=== PATIENT | female | born 1990 | race Hispanic/Latino ===

== ENCOUNTER 2018-05-06 03:11 | Inpatient (IN) | payer MEDICAID ==
--- NOTE | 2018-05-06 03:29 | History and Physical Report ---
History of Present Illness Date of examination: 05/06/18 Date of admission: 05/06/18 03:11 Chief complaint: Labor History of present illness: Pt is a 27yo WF EDC 09/14/18; EGA 21 2/ weeks presents to L&D complaining of vaginal bleeding and contractions. She did not have care with this . Past History Past Medical History: no pertinent history Past Surgical History: section Social history: no significant social history, single - Obstetrical History Expected Date of Delivery: 09/14/18 Actual Gestation: 21 Week(s) 2 Day(s) Medications and Allergies Allergies Allergy/AdvReac Type Severity Reaction Status Date / Time No Known Allergies Allergy Verified 01/16/18 18:16 Home Medications Medication Instructions Recorded Confirmed Last Taken Type Acetaminophen/Codeine [Tylenol #3] 1 tab PO Q6H PRN #15 tab 04/04/13 Unknown Rx Lidocaine Viscous 2% [Xylocaine 10 ml MM Q3H PRN #240 ml 04/04/13 Unknown Rx Viscous 2%] Penicillin Vk [Veetids TAB] 500 mg PO QID #40 tab 04/04/13 Unknown Rx Ciprofloxacin HCl [Ciprofloxacin 500 mg PO Q12H #14 tab 03/30/14 Unknown Rx TAB] Fluconazole 150 mg PO ONCE #2 tablet 03/30/14 Unknown Rx Ibuprofen [Motrin 600 MG tab] 600 mg PO Q8H PRN #30 tablet 03/30/14 Unknown Rx Promethazine [Phenergan] 25 mg PO Q6H PRN #20 tablet 03/30/14 Unknown Rx traMADol [Ultram] 50 mg PO Q6HR PRN #20 tablet 03/30/14 Unknown Rx Review of Systems All systems: negative - Physical Exam Breasts: Positive: deferred Cardiovascular: Regular rate Lungs: Positive: Clear to auscultation Abdomen: Positive: normal appearance Genitourinary (Female): Positive: normal external genitalia Vagina: Positive: other (blood) Uterus: Positive: enlarged - Obstetrical Uterine Contraction Monitor Mode: External Cervical Dilatation: 10 Cervical Effacement Percentage: 100 station: +2 Uterine Contraction Pattern: Regular Uterine Tone Measurement Phase: Contraction Results Result Diagrams: 05/06/18 05:56 All other labs normal. Assessment and Plan - Patient Problems (1) 21 weeks gestation of Onset Date: 05/06/18 Current Visit: Yes Status: Acute Plan to address problem: A: IUP @ 21 2/7 weeks in labor labor premature rupture of membranes No care Previous C Section P: Admit to L&D for imminent vaginal delivery NICU aware (2) contractions Onset Date: 05/06/18 Current Visit: Yes Status: Acute (3) premature rupture of membranes (PPROM) with onset of labor within 24 hours of rupture in second trimester, antepartum Onset Date: 05/06/18 Current Visit: Yes Status: Acute
--- NOTE | 2018-05-06 03:32 | Procedure Note ---
OB Delivery Note - Delivery Date of Delivery: 05/06/18 Surgeon: MARTY TAI Estimated blood loss: 200cc - Vaginal Delivery presentation: vertex Delivery position: OA Intrapartum events: no care, precipitous labor- <3hr Delivery induction: none Delivery augmentation: rupture of membranes Delivery monitor: external FHT, external uterine Route of delivery: Delivery placenta: spontaneous Delivery cord: 3 umbilical vessels Episiotomy: none Anesthesia: none Delivery comments: Infant delivered OA and handed to awaiting Peds/RT in attendance - A at 1 minute: 1 at 5 minutes: 1 Gender: Female (382gms)
[2018-05-06] MEDS ORDERED: BRETHINE IVP PRN (03:33)
[2018-05-06] MEDS ORDERED: BRETHINE SUB-Q PRN (03:33)
[2018-05-06] MEDS ORDERED: MINERAL OIL PO PRN (03:33)
[2018-05-06] MEDS ORDERED: XYLOCAINE 2% INFILTRATI ONE (03:33)
[2018-05-06] MEDS ORDERED: ZOFRAN IV PRN ×2 (03:33→03:37)
[2018-05-06] MEDS ORDERED: TUCKS PAD TP PRN (03:37)
[2018-05-06] MEDS ORDERED: BENADRYL PO PRN (03:37)
[2018-05-06] MEDS ORDERED: PHENERGAN PR PRN (03:37)
[2018-05-06] MEDS ORDERED: PHENERGAN PO PRN (03:37)
[2018-05-06] MEDS ORDERED: DULCOLAX PR PRN (03:37)
[2018-05-06] MEDS ORDERED: TYLENOL PO PRN (03:37)
[2018-05-06] MEDS ORDERED: LANSINOH TP PRN (03:37)
[2018-05-06] MEDS ORDERED: MILK OF MAGNESIA PO PRN (03:37)
[2018-05-06] MEDS ORDERED: SODIUM CHLORIDE FLUSH SYRINGE 10 ML IV PRN (04:00)
[2018-05-06] MEDS ORDERED: PITOCin/NS 30 UNIT/500ML 30 UNITS/500 ML BAG IV SCH (04:00)
[2018-05-06] MEDS ORDERED: LACTATED RINGERS 1,000 ML IV SCH (04:00)
[2018-05-06] MEDS ORDERED: PITOCin/NS 20 UNIT/1000ML DRIP 20 UNITS/1,000 ML BAG IV SCH ×2 (04:00)
[2018-05-06 04:02] LABS: Amphetamine Screen,Urine PRESUMPTIVE NEGATIVE; Benzodiazepines Screen,Urine PRESUMPTIVE NEGATIVE; Cocaine Screen,Urine PRESUMPTIVE NEGATIVE; Methadone Screen,Urine PRESUMPTIVE NEGATIVE; Opiate Screen,Urine PRESUMPTIVE NEGATIVE
[2018-05-06] MEDS: IBUPROFEN PO SCH ×2 (04:06→12:32)
[2018-05-06] MEDS: NORCO 5/325 PO PRN ×4 (04:07→21:20)
[2018-05-06 04:13] LABS: Cannabinoid Screen,Urine PRESUMPTIVE POSITIVE
[2018-05-06 06:12] LABS: Hemoglobin 11.4 gm/dl (10.1-14.3); Mean Corpuscular HGB Conc 34 % (30-34); Mean Corpuscular Volume 89 fl (79-97); Platelet Count 245 K/mm3 (140-440); Red Blood Count 3.73 M/mm3 (3.65-5.03)
[2018-05-06] MEDS: PRENATAL VITAMIN PO SCH (10:08)
[2018-05-06] MEDS: FEOSOL PO SCH ×2 (10:08→21:21)
[2018-05-06 20:14] LABS: Hematocrit 29.5 % (30.3-42.9); Hemoglobin 10.3 gm/dl (10.1-14.3)
[2018-05-07] MEDS ORDERED: M-M-R II VACCINE SUB-Q ONE (03:37)
[2018-05-07] MEDS ORDERED: BOOSTRIX IM ONE (06:00)
[2018-05-07] MEDS: IBUPROFEN PO SCH ×2 (06:20→06:22)
--- NOTE | 2018-05-07 09:43 | Progress Note ---
Assessment and Plan - Patient Problems (1) 21 weeks gestation of Onset Date: 05/06/18 Current Visit: Yes Status: Resolved (2) contractions Onset Date: 05/06/18 Current Visit: Yes Status: Resolved (3) premature rupture of membranes (PPROM) with onset of labor within 24 hours of rupture in second trimester, antepartum Onset Date: 05/06/18 Current Visit: Yes Status: Resolved (4) (normal spontaneous vaginal delivery) Onset Date: 05/07/18 Current Visit: Yes Status: Resolved Plan to address problem: A: S/P ( demise) - PPD#1 Asymptomatic anemia - stable +THC P: May go home today. Subjective - Subjective Date of service: 05/07/18 Principal diagnosis: s/p - PPD #1 Interval history: Pt is feeling tearful, but bleeding has improved. Patient reports: appetite normal, voiding normally, pain well controlled, flatus, ambulating normally, no dizzy ambulation, no nauseated [place]: Objective - Vital Signs Latest vital signs: Vital Signs Temp Pulse Resp BP BP Pulse Ox 05/07/18 08:54 97.8 F 104 H 20 126/91 97 05/07/18 04:35 98.2 F 68 18 126/76 05/07/18 00:00 98.0 F 73 18 102/56 05/06/18 21:20 18 05/06/18 20:05 98.2 F 69 18 112/79 05/06/18 15:49 20 05/06/18 15:37 98.5 F 91 H 18 115/81 97 05/06/18 11:45 98.3 F 90 18 123/80 97 05/06/18 10:08 20 Intake and Output 05/06/18 05/07/18 05/07/18 22:59 06:59 14:59 Intake Total 200 600 Balance 200 600 Intake: Oral 200 360 Intake, Free Water 240 Other: Total, Intake Amount 200 360 # Voids Void 1 1 1 - Exam Breasts: Present: deferred Lungs: Present: Clear to auscultation Abdomen: Present: normal appearance, soft Uterus: Present: normal, firm, fundal height below umbilicus Extremities: Present: normal - Labs Labs: Abnormal lab results 05/06/18 Range/Units 18:41 Hct 29.5 L (30.3-42.9) % Laboratory Tests 05/06/18 05/06/18 05/06/18 03:25 05:56 05:56 WBC 26.2 H RBC 3.73 Hgb 11.4 Hct 33.0 MCV 89 MCH 31 MCHC 34 RDW 13.0 L Plt Count 245 Urine Opiates Screen Presumptive negative Urine Methadone Screen Presumptive negative Ur Barbiturates Screen Presumptive negative Ur Phencyclidine Scrn Presumptive negative Ur Amphetamines Screen Presumptive negative U Benzodiazepines Scrn Presumptive negative Urine Cocaine Screen Presumptive negative U Marijuana (THC) Screen Presumptive positive Drugs of Abuse Note Disclamer RPR Nonreactive Hep Bs Antigen HIV 1&2 Antibody Rapid HIV P24 Antigen Rubella IgG Antibody Blood Type Antibody Screen 05/06/18 05/06/18 05/06/18 05:56 05:56 05:56 WBC RBC Hgb Hct MCV MCH MCHC RDW Plt Count Urine Opiates Screen Urine Methadone Screen Ur Barbiturates Screen Ur Phencyclidine Scrn Ur Amphetamines Screen U Benzodiazepines Scrn Urine Cocaine Screen U Marijuana (THC) Screen Drugs of Abuse Note RPR Hep Bs Antigen Non-reactive HIV 1&2 Antibody Rapid HIV P24 Antigen Rubella IgG Antibody Immune Blood Type A POSITIVE Antibody Screen Negative 05/06/18 05/06/18 05:56 18:41 WBC RBC Hgb 10.3 Hct 29.5 L MCV MCH MCHC RDW Plt Count Urine Opiates Screen Urine Methadone Screen Ur Barbiturates Screen Ur Phencyclidine Scrn Ur Amphetamines Screen U Benzodiazepines Scrn Urine Cocaine Screen U Marijuana (THC) Screen Drugs of Abuse Note RPR Hep Bs Antigen HIV 1&2 Antibody Rapid Non react HIV P24 Antigen Non react Rubella IgG Antibody Blood Type Antibody Screen
[2018-05-07] MEDS: PRENATAL VITAMIN PO SCH (09:44)
[2018-05-07] MEDS: NORCO 5/325 PO PRN (09:44)
[2018-05-07] MEDS: FEOSOL PO SCH (09:44)
--- NOTE | 2018-05-07 10:03 | Discharge Summary ---
Providers - Providers Date of Admission: 05/06/18 03:11 Date of discharge: 05/07/18 Attending physician: MRATY TAI Primary care physician: INTAKE MAN Hospitalization Reason for admission: active labor, IUP - , rupture of membranes Delivery: Episiotomy: none Laceration: none Other procedures: none complications: none Discharge diagnosis: intrapartum demise [place] baby: female Hospital course: Unremarkable. Condition at discharge: Good Disposition: DC-01 TO HOME OR SELFCARE - Discharge Diagnoses (1) 21 weeks gestation of Status: Resolved (2) contractions Status: Resolved (3) premature rupture of membranes (PPROM) with onset of labor within 24 hours of rupture in second trimester, antepartum Status: Resolved (4) (normal spontaneous vaginal delivery) Status: Resolved Plan - Discharge Medications Prescriptions: Ferrous Sulfate [Feosol 325 MG tab] 325 mg PO BID #60 tablet Ibuprofen [Motrin 600 MG tab] 600 mg PO Q6HR #30 tablet Vit-Fe Fumar-FA [ Vitamin] 1 each PO QDAY #30 tablet - Provider Discharge Summary Activity: routine, no sex for 6 weeks, no heavy lifting 4 weeks, no strenuous exercise Diet: routine Instructions: routine Additional instructions: [] Smoking cessation referral if applicable(refer to patient education folder for contact #) [] Refer to [facility] Booklet Call your doctor immediately for: * Fever > 100.5 * Heavy vaginal bleeding ( >1 pad per hour) * Severe persistent headache * Shortness of breath * Reddened, hot, painful area to leg or breast * Drainage or odor from incision. * Keep incision clean and dry at all times and follow doctor's instructions regarding bathing/showering - Follow up plan Follow up: PRIMARY MD SHRUTHI [Primary Care Provider] - 7 Days MARTY TAI MD [Staff Physician] - 6 Weeks
[2018-05-07 12:33] VITALS: BP 133/81
== END 2018-05-07 14:15 | disposition home or self-care (01) | DRG 775 ==
LOC: LD 03:11 → OB 08:02
PROVIDERS: ADMIT Obstetrics & Gynecology; ATTEND Obstetrics & Gynecology
PROC: 10E0XZZ Delivery of Products of Conception, External Approach (ICD-10-PCS; principal; 2018-05-06)
PROC: 3E0234Z Introduction of Serum, Toxoid and Vaccine into Muscle, Percutaneous Approach (ICD-10-PCS; 2018-05-07)
DX: O36.4XX0 Maternal care for intrauterine death, not applicable or unspecified (principal); O62.3 Precipitate labor; O42.012 Preterm premature rupture of membranes, onset of labor within 24 hours of rupture, second trimester; O42.912 Preterm premature rupture of membranes, unspecified as to length of time between rupture and onset of labor, second trimester; Z3A.21 21 weeks gestation of pregnancy; Z37.0 Single live birth; Z23 Encounter for immunization
CPT/HCPCS: 36415; 80307; 85014; 85018; 85027; 86592; 86706; 86762; 86850; 86900; 86901; 87806; 88305; 90707; G0378; J2405; Q0169

== ENCOUNTER 2018-09-01 18:51 | Emergency (ER) | payer MEDICAID ==
[2018-09-01 20:20] VITALS: BP 127/82
--- NOTE | 2018-09-01 21:17 | Emergency Department Report ---
ED Eye Problem HPI - General Chief complaint: Eye Problems Stated complaint: EYE PAIN Time Seen by Provider: 09/01/18 20:36 Source: patient Mode of arrival: Ambulatory Limitations: No Limitations - History of Present Illness MD chief complaint: eye pain, eye redness -: days(s) (2) Onset Description: gradual Location: right eye Place: home If Injury: none Eye Symptoms: redness, itching, discharge Severity: mild If Pain, Quality: burning, other Consistency: constant Associated Symptoms: none Treatments Prior to Arrival: none - Related Data Previous Rx's Medication Instructions Recorded Last Taken Type Acetaminophen/Codeine [Tylenol #3] 1 tab PO Q6H PRN #15 tab 04/04/13 Unknown Rx Lidocaine Viscous 2% [Xylocaine 10 ml MM Q3H PRN #240 ml 04/04/13 Unknown Rx Viscous 2%] Penicillin Vk [Veetids TAB] 500 mg PO QID #40 tab 04/04/13 Unknown Rx Ciprofloxacin HCl [Ciprofloxacin 500 mg PO Q12H #14 tab 03/30/14 Unknown Rx TAB] Fluconazole 150 mg PO ONCE #2 tablet 03/30/14 Unknown Rx Ibuprofen [Motrin 600 MG tab] 600 mg PO Q8H PRN #30 tablet 03/30/14 Unknown Rx Promethazine [Phenergan] 25 mg PO Q6H PRN #20 tablet 03/30/14 Unknown Rx traMADol [Ultram] 50 mg PO Q6HR PRN #20 tablet 03/30/14 Unknown Rx Ferrous Sulfate [Feosol 325 MG tab] 325 mg PO BID #60 tablet 05/07/18 Unknown Rx Ibuprofen [Motrin 600 MG tab] 600 mg PO Q6HR #30 tablet 05/07/18 Unknown Rx Vit-Fe Fumar-FA [ 1 each PO QDAY #30 tablet 05/07/18 Unknown Rx Vitamin] Gentamicin 0.3% Ophth Soln 1 drops OP Q4H 7 Days bottle 09/01/18 Unknown Rx Naphazoline HCl/Pheniramine 1 drop OU BID #1 bottle 09/01/18 Unknown Rx [Naphcon-A Eye Drops] Allergies Allergy/AdvReac Type Severity Reaction Status Date / Time No Known Allergies Allergy Verified 09/01/18 18:52 ED Review of Systems ROS: Stated complaint: EYE PAIN Other details as noted in HPI Comment: All other systems reviewed and negative ED Past Medical Hx - Past Medical History Previous Medical History?: No Hx Hypertension: No Hx Diabetes: No Hx Deep Vein Thrombosis: No Hx Renal Disease: No Hx Sickle Cell Disease: No Hx Seizures: No Hx Asthma: No Hx HIV: No - Surgical History Additional Surgical History: - Social History Smoking Status: Current Every Day Smoker Substance Use Type: Alcohol - Medications Home Medications: Home Medications Medication Instructions Recorded Confirmed Last Taken Type Acetaminophen/Codeine [Tylenol #3] 1 tab PO Q6H PRN #15 tab 04/04/13 Unknown Rx Lidocaine Viscous 2% [Xylocaine 10 ml MM Q3H PRN #240 ml 04/04/13 Unknown Rx Viscous 2%] Penicillin Vk [Veetids TAB] 500 mg PO QID #40 tab 04/04/13 Unknown Rx Ciprofloxacin HCl [Ciprofloxacin 500 mg PO Q12H #14 tab 03/30/14 Unknown Rx TAB] Fluconazole 150 mg PO ONCE #2 tablet 03/30/14 Unknown Rx Ibuprofen [Motrin 600 MG tab] 600 mg PO Q8H PRN #30 tablet 03/30/14 Unknown Rx Promethazine [Phenergan] 25 mg PO Q6H PRN #20 tablet 03/30/14 Unknown Rx traMADol [Ultram] 50 mg PO Q6HR PRN #20 tablet 03/30/14 Unknown Rx Ferrous Sulfate [Feosol 325 MG tab] 325 mg PO BID #60 tablet 05/07/18 Unknown Rx Ibuprofen [Motrin 600 MG tab] 600 mg PO Q6HR #30 tablet 05/07/18 Unknown Rx Vit-Fe Fumar-FA [ 1 each PO QDAY #30 tablet 05/07/18 Unknown Rx Vitamin] Gentamicin 0.3% Ophth Soln 1 drops OP Q4H 7 Days bottle 09/01/18 Unknown Rx Naphazoline HCl/Pheniramine 1 drop OU BID #1 bottle 09/01/18 Unknown Rx [Naphcon-A Eye Drops] ED Physical Exam - General Limitations: No Limitations General appearance: alert, in no apparent distress - Head Head exam: Present: atraumatic, normocephalic - Eye Eye exam: Present: normal appearance, PERRL, EOMI, conjunctival injection, other (normal Acoma apparatus. No foreign bodies are visualized.). Absent: nystagmus, periorbital swelling, periorbital tenderness Pupils: Present: normal accommodation - ENT ENT exam: Present: mucous membranes moist, other (nasal congestion to the left nare noted. Ear wax bilaterally ) - Neck Neck exam: Present: normal inspection - Respiratory Respiratory exam: Present: normal lung sounds bilaterally. Absent: respiratory distress - Cardiovascular Cardiovascular Exam: Present: regular rate, tachycardia (heart rate at 100 during Examination). Absent: systolic murmur, diastolic murmur, rubs, gallop - GI/Abdominal GI/Abdominal exam: Present: soft, normal bowel sounds - Extremities Exam Extremities exam: Present: normal inspection - Back Exam Back exam: Present: normal inspection - Neurological Exam Neurological exam: Present: alert, oriented X3 - Psychiatric Psychiatric exam: Present: normal affect, normal mood - Skin Skin exam: Present: warm, dry, intact, normal color. Absent: rash ED Course Vital Signs 09/01/18 09/01/18 19:02 20:18 Temperature 98.6 F Pulse Rate 122 H 88 Respiratory 18 20 Rate Blood Pressure 148/95 Blood Pressure 127/82 [Right] O2 Sat by Pulse 100 99 Oximetry ED Medical Decision Making - Medical Decision Making 19-year-old female with right pain suggestive of conjunctivitis pink and discharge noted. No signs of any periorbital cellulitis. No signs of any trauma. There is some nasal congestion. Heart rate was elevated in triage 100 time of examination patient is alert, oriented 3. No palpitations or chest pain noted. No shortness of breath, no presyncope. Discussed with her the need to complete the antibiosis for the eye infection and the need to follow-up for reevaluation. She is also been instructed on when to return to the emergency department Critical care attestation.: If time is entered above; I have spent that time in minutes in the direct care of this critically ill patient, excluding procedure time. ED Disposition Clinical Impression: Conjunctivitis, Wax in ear Disposition: DC-01 TO HOME OR SELFCARE Is pt being admited?: No Does the pt Need Aspirin: No Condition: Stable Prescriptions: Gentamicin 0.3% Ophth Soln 1 drops OP Q4H 7 Days bottle Naphazoline HCl/Pheniramine [Naphcon-A Eye Drops] 1 drop OU BID #1 bottle Referrals: HALLEY MARIA MD [Primary Care Provider] - 3-5 Days
== END 2018-09-01 22:00 | disposition home or self-care (01) ==
LOC: ED 18:51
DX: H10.9 Unspecified conjunctivitis (principal); H92.03 Otalgia, bilateral; F17.200 Nicotine dependence, unspecified, uncomplicated; Z79.1 Long term (current) use of non-steroidal anti-inflammatories (NSAID); Z79.899 Other long term (current) drug therapy
CPT/HCPCS: 99282